=== PATIENT | female | born 1960 | race Caucasian/White ===

== ENCOUNTER 2017-09-23 09:04 | Emergency (ER) | payer MEDICAID ==
[~2017-09-23] VITALS: Ht 157.5 cm; Wt 74.0 kg
[~2017-09-23 09:04] MED LIST: ACET250T3 PO; ALBU18HF2 INH; BECL7.3A INH; BUPR200T3 PO; CARV-50 PO; ENAL20TA75 PO; OXYB5TAB11 PO; PRED50TA PO; RISP1TAB3 PO; TRAZ150T78 PO
[2017-09-23 09:11] VITALS: BP 194/121
[2017-09-23] MEDS ORDERED: LIDOcaine 1.5% w/epinephrine 1:200,000 5ml ampul IJ ONE (10:00)
== END 2017-09-23 10:15 | disposition home or self-care (01) ==
LOC: ER 09:04
DX: S50.11XA Contusion of right forearm, initial encounter (principal); I10 Essential (primary) hypertension; J45.909 Unspecified asthma, uncomplicated; Z90.49 Acquired absence of other specified parts of digestive tract; Z88.8 Allergy status to other drugs, medicaments and biological substances; Z79.899 Other long term (current) drug therapy
CPT/HCPCS: 73090; 99284

== ENCOUNTER 2018-05-02 14:44 | Emergency (ER) | payer MEDICAID, OTHER ==
[~2018-05-02] VITALS: Ht 157.5 cm; Wt 82.0 kg
[2018-05-02 15:00] VITALS: BP 213/127
== END 2018-05-02 16:21 | disposition home or self-care (01) ==
LOC: ER 14:44
DX: M25.561 Pain in right knee (principal); I10 Essential (primary) hypertension; J45.909 Unspecified asthma, uncomplicated; Z90.49 Acquired absence of other specified parts of digestive tract; Z98.51 Tubal ligation status; Z88.8 Allergy status to other drugs, medicaments and biological substances; Z79.899 Other long term (current) drug therapy
CPT/HCPCS: 73564; 99283

== ENCOUNTER 2019-01-18 12:18 | Emergency (ER) | payer MEDICAID ==
[~2019-01-18] VITALS: Ht 157.5 cm; Wt 84.1 kg
[~2019-01-18 12:18] MED LIST changes: -OXYB5TAB11 PO; +OXYB5TAB16 PO
[2019-01-18 12:41] VITALS: BP 177/108
[2019-01-18] MEDS ORDERED: dexamethasone 4mg tablet PO ONE (13:35)
[2019-01-18] MEDS ORDERED: triamcinolone acetonide 40mg/ml inj IM ONE (13:35)
[2019-01-18] MEDS ORDERED: acetaminophen 325mg tablet PO ONE (13:35)
[2019-01-18] MEDS ORDERED: HYDR-3965 PO (13:35)
[2019-01-18] MEDS ORDERED: ketorolac trometh inj. 60 MG/2 ML VIAL IM ONE (13:35)
== END 2019-01-18 14:17 | disposition home or self-care (01) ==
LOC: ER 12:19
DX: M17.12 Unilateral primary osteoarthritis, left knee (principal); I10 Essential (primary) hypertension; J45.909 Unspecified asthma, uncomplicated; F32.9 Major depressive disorder, single episode, unspecified; Z90.49 Acquired absence of other specified parts of digestive tract; Z98.51 Tubal ligation status; Z88.8 Allergy status to other drugs, medicaments and biological substances; Z79.899 Other long term (current) drug therapy; W01.0XXA Fall on same level from slipping, tripping and stumbling without subsequent striking against object, initial encounter; Y93.89 Activity, other specified; Y92.89 Other specified places as the place of occurrence of the external cause; Y99.8 Other external cause status
CPT/HCPCS: 96372; 99283; J1885; J3301; J8540

== ENCOUNTER 2019-07-12 09:46 | Emergency (ER) | payer MEDICAID ==
[~2019-07-12] VITALS: Ht 157.5 cm; Wt 80.1 kg
[2019-07-12 10:01] VITALS: BP 166/89
[2019-07-12] MEDS ORDERED: orphenadrine citrate 60mg/2ml inj. IM ONE (12:15)
[2019-07-12] MEDS ORDERED: ketorolac tromethamine 15mg/ml inj. IM ONE (12:15)
== END 2019-07-12 13:02 | disposition home or self-care (01) ==
LOC: ER 09:46
DX: S83.8X2A Sprain of other specified parts of left knee, initial encounter (principal); S39.012A Strain of muscle, fascia and tendon of lower back, initial encounter; I10 Essential (primary) hypertension; J45.909 Unspecified asthma, uncomplicated; F32.9 Major depressive disorder, single episode, unspecified; Z90.49 Acquired absence of other specified parts of digestive tract; Z98.51 Tubal ligation status; Z88.8 Allergy status to other drugs, medicaments and biological substances; Z79.899 Other long term (current) drug therapy; W18.39XA Other fall on same level, initial encounter; Y93.89 Activity, other specified; Y92.89 Other specified places as the place of occurrence of the external cause; Y99.8 Other external cause status
CPT/HCPCS: 29505; 96372; 99284; J1885; J2360

== ENCOUNTER 2019-07-18 11:27 | Emergency (ER) | payer MEDICAID ==
[~2019-07-18] VITALS: Ht 157.5 cm; Wt 81.0 kg
[2019-07-18] MEDS ORDERED: ketorolac trometh. 30mg/ml inj. IM ONE (12:20)
--- NOTE | 2019-07-18 12:45 | NUR ---
PT TO XRAY
[2019-07-18 13:38] VITALS: BP 125/73
--- NOTE | 2019-07-18 13:42 | NUR ---
charted on wrong pt, dc vitals are HR 89, BP 189/120, 98% on room air, pt is going to follow up with PMD regarding BP med, no meds x 1 month "I was moving and one medication caused problems", pt is aware of need to follow up with PMD regarding BP, dc'd at 1330, taken out by wheelchair
== END 2019-07-18 13:36 | disposition home or self-care (01) ==
LOC: ER 11:28
DX: S39.012A Strain of muscle, fascia and tendon of lower back, initial encounter (principal); M25.562 Pain in left knee; I10 Essential (primary) hypertension; J45.909 Unspecified asthma, uncomplicated; F32.9 Major depressive disorder, single episode, unspecified; Z90.49 Acquired absence of other specified parts of digestive tract; Z98.51 Tubal ligation status; Z88.8 Allergy status to other drugs, medicaments and biological substances; Z79.899 Other long term (current) drug therapy; W01.0XXA Fall on same level from slipping, tripping and stumbling without subsequent striking against object, initial encounter; Y93.89 Activity, other specified; Y92.89 Other specified places as the place of occurrence of the external cause; Y99.8 Other external cause status
CPT/HCPCS: 72100; 73564; 96372; 99284; J1885

== ENCOUNTER 2022-09-24 05:38 | Inpatient (IN) | payer MEDICAID ==
[~2022-09-24] VITALS: Ht 157.5 cm; Wt 89.4 kg
[~2022-09-24 05:38] MED LIST changes: -BUPR200T3 PO; +BUPR200T41 PO; -RISP1TAB3 PO; +RISP1TAB98 PO
[2022-09-24] MEDS ORDERED: lisinopril 10 MG tablet PO ONE (06:10)
[2022-09-24] MEDS ORDERED: lisinopril 20mg tablet PO ONE (06:20)
--- NOTE | 2022-09-24 06:23 | NUR ---
RN MANUALLY SIGNED OFF LISINOPRIL. ORD 20MG RECD 10MG TABLETS FROM [email or web address]. PT RECD 40MG
[2022-09-24] MEDS ORDERED: carVEDilol 3.125mg tablet PO STA (06:51)
[2022-09-24 07:04] LABS: BASOPHILS # (AUTO) 0.1 X10'3 (0-0.2); BASOPHILS % (AUTO) 0.4 % (0-1); EOSINOPHILS # (AUTO) 0.7 X10'3 (0-0.9); EOSINOPHILS % (AUTO) 5.9 % (0-6); HEMATOCRIT 45.6 % (35.0-45.0); HEMOGLOBIN 15.1 g/dl (12.0-16.0); LYMPHOCYTES # (AUTO) 3.3 X10'3 (1.1-4.8); LYMPHOCYTES % (AUTO) 26.4 % (21-51); MEAN CORPUSCULAR HEMOGLOBIN 27.1 PG (27.0-31.0); MEAN CORPUSCULAR VOLUME 82.1 FL (78-98); MEAN PLATELET VOLUME 7.5 FL (7.4-10.4); NEUTROPHILS # (AUTO) 7.4 X10'3 (1.8-7.7); NEUTROPHILS % (AUTO) 59.3 % (42-75); PLATELET COUNT 286 X10'3 (140-440); RED BLOOD COUNT 5.55 X10'6 (4.20-5.60); WHITE BLOOD COUNT 12.5 X10'3 (4.5-11.0)
[2022-09-24 07:08] LABS: ALANINE AMINOTRANSFERASE 24 U/L (12-78); ALBUMIN 3.4 G/DL (3.4-5.0); ALBUMIN/GLOBULIN RATIO 0.8 (1.1-1.5); ALKALINE PHOSPHATASE 93 IU/L (46-116); ANION GAP 8 (8-16); ASPARTATE AMINO TRANSFERASE 20 U/L (10-37); BILIRUBIN,TOTAL 0.3 MG/DL (0.1-1.0); BLOOD UREA NITROGEN 21 MG/DL (7-18); BUN/CREATININE RATIO 20.2 (10.0-20.0); CALCIUM 9.7 MG/DL (8.5-10.1); CHLORIDE 103 MMOL/L (99-107); CREATININE 1.04 MG/DL (0.40-0.90); GLUCOSE 107 MG/DL (70-104); POTASSIUM 3.4 MMOL/L (3.5-5.1); SODIUM 140 MMOL/L (135-145); TOTAL PROTEIN 7.5 G/DL (6.4-8.2); eGFR 53 ML/MIN
[2022-09-24] MEDS ORDERED: mag hydrox/Alum hydrox/simeth 30ml oral suspension PO PRN (08:15)
[2022-09-24] MEDS ORDERED: magnesium 2GM in 50ml NS 50 ML IV PRN (08:15)
[2022-09-24] MEDS ORDERED: magnesium Cl slow-release 64mg tablet PO PRN (08:15)
[2022-09-24] MEDS ORDERED: magnesium 4gm in 100ml NS 100 ML IV PRN (08:15)
[2022-09-24] MEDS ORDERED: potassium Cl 20 mEq SR tablet PO PRN (08:15)
[2022-09-24] MEDS ORDERED: potassium Cl 40MEQ/1/2NS 520ml 520 ML IV PRN (08:15)
[2022-09-24] MEDS ORDERED: ondansetron/PF 4mg/2ml inj IV PRN (08:15)
[2022-09-24] MEDS ORDERED: magnesium hydroxide 30ml (MOM) UD suspension PO PRN (08:15)
[2022-09-24] MEDS ORDERED: acetaminophen 325mg tablet PO PRN (08:15)
[2022-09-24 08:17] LABS: CLARITY,URINE CLEAR (Clear); GLUCOSE, URINE NEGATIVE (Neg); KETONES,URINE NEGATIVE (Neg); LEUKOCYTE ESTERASE ,URINE NEGATIVE (Neg); NITRITES, URINE NEGATIVE (Neg); OCCULT BLOOD,URINE TRACE-INTACT (Neg); PROTEIN,URINE NEGATIVE (Neg); UROBILINOGEN,URINE 0.2 E.U/dL (0.2-1.0)
[2022-09-24 08:18] LABS: UA COLLECTION TYPE CLN CATCH MIDSTREAM
[2022-09-24 08:19] LABS: COLOR,URINE STRAW (Yellow)
[2022-09-24 08:42] LABS: BACTERIA,URINE NONE SEEN /HPF (Neg); MUCUS STRANDS NONE SEEN /LPF (Neg); RBC,URINE 0-2 /HPF (0-2); SQUAMOUS EPITHELIAL CELL,UR FEW /LPF (FEW); WBC,URINE 0-4 /HPF (0-4)
--- NOTE | 2022-09-24 08:54 | NUR ---
PT K 3.4 RN CALLED PHARM AND REQ IV REPLACEMENT TO BE PREPARED AND BROUGHT TO ED.
[2022-09-24] MEDS: hydrALAZINE 20mg/ml inj. IV PRN (09:01)
[2022-09-24] MEDS: normal saline 1000ml 1,000 ML IV SCH ×3 (09:08→23:50)
[2022-09-24 09:46] LABS: OCCULT BLOOD STOOL POSITIVE (Neg)
--- NOTE | 2022-09-24 10:13 | NUR ---
rn attempted to call report. administrative assistant receptionist stated she will locate receiving rn and have her call back.
--- NOTE | 2022-09-24 10:39 | NUR ---
Patient in room ED 2. I have received report from Summer and had the opportunity to ask questions and assume patient care.
[2022-09-24 11:25] VITALS: BP 187/94
[2022-09-24] MEDS ORDERED: carvedilol 6.25mg tablet PO ONE (12:10)
[2022-09-24 13:00] VITALS: BP 158/82
[2022-09-24] MEDS ORDERED: PEG 3350/Na sulf,bicarb,Cl/KCl oral sol 4 liter bottle PO ONE (13:00)
[2022-09-24] MEDS: nicotine 14mg patch - 24hr TD SCH (13:27)
[2022-09-24] MEDS ORDERED: LISI40TA13 PO (16:02)
[2022-09-24] MEDS ORDERED: IBUP-1985 PO (16:06)
[2022-09-24 18:00] VITALS: BP 184/98
--- NOTE | 2022-09-24 18:25 | NUR ---
Problems reprioritized. Patient report given, questions answered & plan of care reviewed with Yola.
[2022-09-24] MEDS: docusate sod 100mg capsule PO SCH (19:40)
[2022-09-24] MEDS: K and/or MAG REPLACEMENT MC SCH (19:40)
[2022-09-24 20:00] VITALS: BP 168/102
[2022-09-24] MEDS ORDERED: carVEDilol 12.5mg tablet PO SCH (20:00)
[2022-09-24] MEDS ORDERED: albuterol 2.5 MG/3 ML nebule NEB PRN (20:00)
[2022-09-24] MEDS: carVEDilol 12.5mg tablet PO SCH (20:07)
[2022-09-24] MEDS: lisinopril 20mg tablet PO SCH (20:10)
[2022-09-24 22:00] VITALS: BP 148/91
[2022-09-25] VITALS (9 sets, daily range): BP systolic 141–184; BP diastolic 70–104
--- NOTE | 2022-09-25 06:26 | NUR ---
Problems reprioritized. Patient report given, questions answered & plan of care reviewed with NICOLASA Peoples.
--- NOTE | 2022-09-25 06:30 | NUR ---
Patient in room ORTHO 4010. I have received report from NICOLASA Aceves and had the opportunity to ask questions and assume patient care.
[2022-09-25 07:13] LABS: BASOPHILS # (AUTO) 0.1 X10'3 (0-0.2); BASOPHILS % (AUTO) 0.6 % (0-1); EOSINOPHILS # (AUTO) 0.8 X10'3 (0-0.9); EOSINOPHILS % (AUTO) 7.4 % (0-6); HEMATOCRIT 40.9 % (35.0-45.0); HEMOGLOBIN 13.8 g/dl (12.0-16.0); LYMPHOCYTES # (AUTO) 2.6 X10'3 (1.1-4.8); LYMPHOCYTES % (AUTO) 25.5 % (21-51); MEAN CORPUSCULAR HGB CONC 33.9 g/dL (33.0-36.5); MEAN CORPUSCULAR VOLUME 82.5 FL (78-98); MEAN PLATELET VOLUME 7.8 FL (7.4-10.4); MONOCYTES # (AUTO) 0.7 X10'3 (0-0.9); MONOCYTES % (AUTO) 6.8 % (2-12); NEUTROPHILS # (AUTO) 6.1 X10'3 (1.8-7.7); NEUTROPHILS % (AUTO) 59.7 % (42-75); PLATELET COUNT 259 X10'3 (140-440); RED BLOOD COUNT 4.95 X10'6 (4.20-5.60); WHITE BLOOD COUNT 10.2 X10'3 (4.5-11.0)
[2022-09-25 07:20] LABS: ALBUMIN 2.9 G/DL (3.4-5.0); ANION GAP 6 (8-16); BLOOD UREA NITROGEN 13 MG/DL (7-18); BUN/CREATININE RATIO 12.6 (10.0-20.0); CALCIUM 8.6 MG/DL (8.5-10.1); CHLORIDE 107 MMOL/L (99-107); CREATININE 1.03 MG/DL (0.40-0.90); GLUCOSE 108 MG/DL (70-104); MAGNESIUM 1.8 MG/DL (1.5-2.4); POTASSIUM 3.5 MMOL/L (3.5-5.1); SODIUM 141 MMOL/L (135-145); eGFR 54 ML/MIN
[2022-09-25] MEDS: docusate sod 100mg capsule PO SCH ×2 (08:00→19:19)
[2022-09-25] MEDS: K and/or MAG REPLACEMENT MC SCH ×2 (08:00→20:00)
[2022-09-25] MEDS: normal saline 1000ml 1,000 ML IV SCH ×2 (10:51→23:28)
[2022-09-25] MEDS: carVEDilol 12.5mg tablet PO SCH ×2 (10:52→19:19)
[2022-09-25] MEDS: lisinopril 20mg tablet PO SCH ×2 (10:52→19:19)
[2022-09-25] MEDS: nicotine 14mg patch - 24hr TD SCH (10:53)
[2022-09-25] MEDS ORDERED: fentaNYL/PF 50MCG/1 ML 2ML syringe ONE (12:57)
[2022-09-25] MEDS ORDERED: MIDAZolam 1 MG/ML 5ML VIAL ONE (12:58)
[2022-09-25] MEDS: hydrALAZINE 20mg/ml inj. IV PRN (17:10)
--- NOTE | 2022-09-25 18:40 | NUR ---
Problems reprioritized. Patient report given, questions answered & plan of care reviewed with NICOLASA Blanca.
[2022-09-26 05:00] VITALS: BP 149/82
--- NOTE | 2022-09-26 06:15 | NUR ---
Patient in room ORTHO 4010. I have received report from NICOLASA Blanca and had the opportunity to ask questions and assume patient care.
--- NOTE | 2022-09-26 06:23 | NUR ---
Problems reprioritized. Patient report given, questions answered & plan of care reviewed with Richelle RN.
[2022-09-26 07:03] LABS: BASOPHILS # (AUTO) 0.1 X10'3 (0-0.2); BASOPHILS % (AUTO) 0.5 % (0-1); EOSINOPHILS # (AUTO) 0.7 X10'3 (0-0.9); EOSINOPHILS % (AUTO) 5.3 % (0-6); HEMATOCRIT 43.1 % (35.0-45.0); HEMOGLOBIN 14.4 g/dl (12.0-16.0); LYMPHOCYTES # (AUTO) 2.9 X10'3 (1.1-4.8); LYMPHOCYTES % (AUTO) 22.1 % (21-51); MEAN CORPUSCULAR HEMOGLOBIN 27.5 PG (27.0-31.0); MEAN CORPUSCULAR HGB CONC 33.3 g/dL (33.0-36.5); MEAN CORPUSCULAR VOLUME 82.6 FL (78-98); MEAN PLATELET VOLUME 7.7 FL (7.4-10.4); MONOCYTES # (AUTO) 0.8 X10'3 (0-0.9); MONOCYTES % (AUTO) 6.5 % (2-12); NEUTROPHILS # (AUTO) 8.5 X10'3 (1.8-7.7); NEUTROPHILS % (AUTO) 65.6 % (42-75); PLATELET COUNT 271 X10'3 (140-440); RED BLOOD COUNT 5.22 X10'6 (4.20-5.60); WHITE BLOOD COUNT 12.9 X10'3 (4.5-11.0)
[2022-09-26 07:20] LABS: ALBUMIN 2.9 G/DL (3.4-5.0); ANION GAP 7 (8-16); BLOOD UREA NITROGEN 12 MG/DL (7-18); BUN/CREATININE RATIO 13.3 (10.0-20.0); CALCIUM 9.2 MG/DL (8.5-10.1); CHLORIDE 105 MMOL/L (99-107); GLUCOSE 104 MG/DL (70-104); MAGNESIUM 1.7 MG/DL (1.5-2.4); POTASSIUM 3.4 MMOL/L (3.5-5.1); SODIUM 139 MMOL/L (135-145); TOTAL CARBON DIOXIDE 26.7 MMOL/L (24-32); eGFR 63 ML/MIN
[2022-09-26] MEDS: K and/or MAG REPLACEMENT MC SCH (07:36)
[2022-09-26] MEDS: docusate sod 100mg capsule PO SCH (08:00)
[2022-09-26] MEDS: carVEDilol 12.5mg tablet PO SCH (08:33)
[2022-09-26] MEDS: potassium Cl 20 mEq SR tablet PO PRN ×3 (08:33→16:29)
[2022-09-26] MEDS: lisinopril 20mg tablet PO SCH (08:33)
[2022-09-26] MEDS: nicotine 14mg patch - 24hr TD SCH (08:34)
[2022-09-26] MEDS ORDERED: acetaminophen 325mg tablet PO PRN (08:40)
[2022-09-26 10:00] VITALS: BP 187/93
[2022-09-26] MEDS: normal saline 1000ml 1,000 ML IV SCH (10:15)
[2022-09-26] MEDS ORDERED: PANT-47 PO (12:01)
[2022-09-26 12:08] VITALS: BP_SYST 187
[2022-09-26] MEDS: hydrALAZINE 20mg/ml inj. IV PRN (12:08)
[2022-09-26] MEDS ORDERED: CARV-50 PO (15:34)
[2022-09-26] MEDS ORDERED: LISI40TA13 PO (15:34)
--- NOTE | 2022-09-26 16:55 | NUR ---
DC inst provided to pt. IV DC'd, tip intact. All belongings sent w/pt. WC to vehicle.
== END 2022-09-26 17:00 | disposition home or self-care (01) | DRG 244 ==
LOC: ER 05:38 → ED HOLD 08:18 → ORTHO 4S 10:59
PROVIDERS: ADMIT Family Medicine; ATTEND Family Medicine
DX: K57.91 Diverticulosis of intestine, part unspecified, without perforation or abscess with bleeding (principal); Z99.81 Dependence on supplemental oxygen; D72.829 Elevated white blood cell count, unspecified; F17.210 Nicotine dependence, cigarettes, uncomplicated; F32.A Depression, unspecified; F41.9 Anxiety disorder, unspecified; I10 Essential (primary) hypertension; J44.9 Chronic obstructive pulmonary disease, unspecified; Z82.49 Family history of ischemic heart disease and other diseases of the circulatory system; Z82.5 Family history of asthma and other chronic lower respiratory diseases; Z85.43 Personal history of malignant neoplasm of ovary; Z90.49 Acquired absence of other specified parts of digestive tract; Z88.8 Allergy status to other drugs, medicaments and biological substances; Z98.51 Tubal ligation status; Z79.899 Other long term (current) drug therapy; Z71.6 Tobacco abuse counseling
CPT/HCPCS: 36415; 45385; 71045; 74176; 80048; 80053; 81001; 82272; 83735; 85025; 87081; 93005; 99152; 99153; 99285; A4620; C1889; G0378; J0360; J2250; J3010; J3480; J7030

== ENCOUNTER 2022-11-26 08:06 | Emergency (ER) | payer MEDICAID, SELFPAY ==
[~2022-11-26] VITALS: Ht 157.5 cm; Wt 95.5 kg
[~2022-11-26 08:06] MED LIST changes: -ACET250T3 PO; -BECL7.3A INH; -BUPR200T41 PO; -ENAL20TA75 PO; +LISI40TA13 PO; -OXYB5TAB16 PO; +PANT-47 PO; -PRED50TA PO; -RISP1TAB98 PO; -TRAZ150T78 PO
[2022-11-26] MEDS ORDERED: acetaminophen 325mg tablet PO STA (08:38)
[2022-11-26] MEDS ORDERED: CefTRIAXone 2gm/D5W 50ml BAG 50 ML IV ONE (08:40)
[2022-11-26] MEDS ORDERED: normal saline 1000ML IV soln IV ONE (08:40)
--- NOTE | 2022-11-26 08:54 | NUR ---
PT STATES THAT SHE PROVIDED URINE. RN CALLED LAB AND THEY DO NOT HAVE PT URINE. RN WILL ATTEMPT TO COLLECT.
--- NOTE | 2022-11-26 08:59 | NUR ---
PT TAKEN TO CT.
--- NOTE | 2022-11-26 08:59 | NUR ---
PT IS A HARD STICK. IV WILL NEED TO BE OBTAINED BY US. RN WILL ATTEMPT WHEN PT RTN FROM CT.
[2022-11-26 09:26] LABS: ALANINE AMINOTRANSFERASE 43 U/L (12-78); ALBUMIN/GLOBULIN RATIO 0.6 (1.1-1.5); ALKALINE PHOSPHATASE 122 IU/L (46-116); ANION GAP 7 (8-16); ASPARTATE AMINO TRANSFERASE 22 U/L (10-37); BILIRUBIN,TOTAL 0.7 MG/DL (0.1-1.0); BLOOD UREA NITROGEN 23 MG/DL (7-18); BUN/CREATININE RATIO 14.7 (10.0-20.0); CHLORIDE 100 MMOL/L (99-107); CREATININE 1.56 MG/DL (0.40-0.90); GLUCOSE 120 MG/DL (70-104); SODIUM 138 MMOL/L (135-145); TOTAL CARBON DIOXIDE 30.7 MMOL/L (24-32); eGFR 33 ML/MIN
[2022-11-26 09:28] LABS: CLARITY,URINE CLOUDY (Clear); COLOR,URINE YELLOW (Yellow); GLUCOSE, URINE NEGATIVE (Neg); KETONES,URINE NEGATIVE (Neg); LEUKOCYTE ESTERASE ,URINE SMALL (Neg); NITRITES, URINE NEGATIVE (Neg); OCCULT BLOOD,URINE MODERATE (Neg); PH,URINE 6.5 (4.8-8.0); PROTEIN,URINE 100 mg/dl (Neg)
[2022-11-26 09:29] LABS: UA COLLECTION TYPE CLN CATCH MIDSTREAM
[2022-11-26 09:39] LABS: BACTERIA,URINE 2+ /HPF (Neg); SQUAMOUS EPITHELIAL CELL,UR MANY /LPF (FEW)
[2022-11-26 09:45] LABS: WBC,URINE TNTC /HPF (0-4)
[2022-11-26 09:53] LABS: BASOPHILS # (AUTO) 0.1 X10'3 (0-0.2); BASOPHILS % (AUTO) 0.3 % (0-1); EOSINOPHILS # (AUTO) 0.2 X10'3 (0-0.9); HEMATOCRIT 45.9 % (35.0-45.0); HEMOGLOBIN 15.1 g/dl (12.0-16.0); LYMPHOCYTES # (AUTO) 2.5 X10'3 (1.1-4.8); LYMPHOCYTES % (AUTO) 11.7 % (21-51); MEAN CORPUSCULAR HEMOGLOBIN 27.8 PG (27.0-31.0); MEAN CORPUSCULAR VOLUME 84.2 FL (78-98); MEAN PLATELET VOLUME 8.4 FL (7.4-10.4); MONOCYTES # (AUTO) 1.7 X10'3 (0-0.9); MONOCYTES % (AUTO) 8.1 % (2-12); NEUTROPHILS # (AUTO) 16.6 X10'3 (1.8-7.7); NEUTROPHILS % (AUTO) 78.9 % (42-75); PLATELET COUNT 267 X10'3 (140-440); RED BLOOD COUNT 5.45 X10'6 (4.20-5.60); RED CELL DISTRIBUTION WIDTH 14.9 % (11.5-14.5)
[2022-11-26] MEDS ORDERED: metoprolol tartrate 50mg tablet PO ONE (10:00)
[2022-11-26] MEDS ORDERED: CEPH250T PO (10:02)
--- NOTE | 2022-11-26 10:12 | NUR ---
URINE WAS REJECTED FOR CULTURE. RN WILL COLLECT AGAIN AND SEND TO THE LAB.
--- NOTE | 2022-11-26 10:25 | NUR ---
PT C/O SOB AND INT NON-PRODUCTIVE COUGH. RN NOTIFIED CHERRIE.
[2022-11-26] MEDS ORDERED: ipratropium/albuterol 3ml nebule NEB ONE (10:35)
--- NOTE | 2022-11-26 10:37 | NUR ---
RT PAGED TO GIVE RT TX KYLIE. PER CHERRIE STOP IV FLUID AT THIS TIME. TOTAL INFUSED IS 1500 CC.
[2022-11-26 11:00] VITALS: BP 146/93
--- NOTE | 2022-11-26 11:00 | NUR ---
PT STATES THAT SOB HAS RESOLVED AFTER RT TX. BP IMPROVED. PT WILL BE DC.
== END 2022-11-26 11:10 | disposition home or self-care (01) ==
LOC: ER 08:06
DX: N10 Acute pyelonephritis (principal); I10 Essential (primary) hypertension; J45.909 Unspecified asthma, uncomplicated; F32.A Depression, unspecified; Z90.49 Acquired absence of other specified parts of digestive tract; Z98.890 Other specified postprocedural states
CPT/HCPCS: 36415; 74176; 80053; 81001; 83605; 84145; 85025; 87040; 94640; 96365; 99285; J0696; J7030; 94760